=== PATIENT | male | born 1960 | race Caucasian/White ===

== ENCOUNTER 2022-07-07 12:50 | Emergency (ER) | payer SELFPAY ==
[~2022-07-07] VITALS: Ht 170.2 cm; Wt 65.8 kg
[2022-07-07 13:00] VITALS: BP 130/84
--- NOTE | 2022-07-07 13:03 | NUR ---
PT BIBA AND ASSISTED TO BED 8
--- NOTE | 2022-07-07 13:10 | NUR ---
61 M BIBA FROM [facility]. A&OX2. PT STATED HE "FELL WHEN CROSSING THE STREET". BRIGHT RED BLOOD ON NOSE WITH NO ACTIVE BLEEDING. PT HAS STITCHES ABOVE LEFT EYE, STATING HE "RECIEVED THEM ABOUT A MONTH AGO". HEALING WOUNDS PRESENT ON FACE AND RIGHT KNEE. NON-PRODUCTIVE COUGH PRESENT. RHONCHI HEARD UPON AUSCULTATION. NO ACUTE DISTRESS NOTED AT THIS TIME, VITALS STABLE, ON ROOM AIR. NKA PMH: DENIES NOTED BY JOSE THORNE RN AND REVIEWED BY JEFFERSON SIMPSON
--- NOTE | 2022-07-07 13:29 | NUR ---
PT'S WOUNDS CLEANED WITH WARM WATER AND BETADINE, CHAR CONVEYOR TENDER CELLAR AND ERMD NOTIFIED.
--- NOTE | 2022-07-07 13:40 | NUR ---
MD DEGROOT AT BEDSIDE FOR EVALUATION
--- NOTE | 2022-07-07 13:48 | NUR ---
PT TAKEN TO CT VIA GENIE
--- NOTE | 2022-07-07 14:00 | NUR ---
PT BROUGHT BACK FROM CT
[2022-07-07] MEDS ORDERED: ALBUTEROL SULFATE/IPRATROPIU 3 ML SOL IH ONE (15:10)
--- NOTE | 2022-07-07 15:15 | NUR ---
RT AT BEDSIDE
[2022-07-07 16:03] VITALS: BP 128/82
--- NOTE | 2022-07-07 16:33 | NUR ---
Patient discharged with v/s stable. Written and verbal after care instructions given and explained. Patient verbalized understanding. Ambulatory with steady gait. All questions addressed prior to discharge. Advised to follow up with PMD. REFUSED TO TAKE PAPERWORK.
--- NOTE | 2022-07-07 16:33 | NUR ---
Note sloan in EDM - 07/07/22 at 1637 by PHSEP Patient discharged with v/s stable. Written and verbal after care instructions FOR NASAL FRACTURE, UPPER RESPIRATORY INFECTION AND ALCOHOL ABUSE given and explained. Patient verbalized understanding. Ambulatory with steady gait. All questions addressed prior to discharge. Advised to follow up with PMD.
--- NOTE | 2022-07-08 17:12 | NUR ---
RADIOLOGY CALLED FOR CT DISCREPANCY, CALL TRANSFERRED TO DR CALLE. ATTEMPTED TO CONTACT PT, NO NUMBER ON FILE. DR CALLE AWARE
== END 2022-07-07 16:33 | disposition home or self-care (01) ==
LOC: MED 12:50
DX: S00.81XA Abrasion of other part of head, initial encounter (principal); Z20.822 Contact with and (suspected) exposure to COVID-19; F10.129 Alcohol abuse with intoxication, unspecified; F17.210 Nicotine dependence, cigarettes, uncomplicated; J44.9 Chronic obstructive pulmonary disease, unspecified; W19.XXXA Unspecified fall, initial encounter; Y93.89 Activity, other specified; Y92.89 Other specified places as the place of occurrence of the external cause; Y99.8 Other external cause status
CPT/HCPCS: 70450; 70486; 71045; 72125; 94640; 99285

== ENCOUNTER 2022-07-10 15:27 | Emergency (ER) | payer MEDICAID ==
[~2022-07-10] VITALS: Ht 167.6 cm; Wt 68.0 kg
[2022-07-10 16:48] VITALS: BP 96/65
--- NOTE | 2022-07-10 16:50 | NUR ---
PT TAKEN TO CHAIR C THEN WALKED OUT OF ER. PATIENT LEFT WITHOUT BEING SEEN BY DR. ALONZO. NO FURTHER CARE PROVIDED FOR PATIENT.
== END 2022-07-10 16:50 | disposition left against medical advice (07) ==
LOC: MED 15:27
DX: S00.11XD Contusion of right eyelid and periocular area, subsequent encounter (principal); S00.12XD Contusion of left eyelid and periocular area, subsequent encounter; Z53.21 Procedure and treatment not carried out due to patient leaving prior to being seen by health care provider; X58.XXXD Exposure to other specified factors, subsequent encounter

== ENCOUNTER 2022-07-10 19:13 | Emergency (ER) | payer MEDICAID ==
[~2022-07-10] VITALS: Ht 165.1 cm; Wt 63.5 kg
[2022-07-10 19:33] VITALS: BP 119/71
--- NOTE | 2022-07-10 19:36 | NUR ---
PT OFFLOADED TO LOBBY IN W/C WITH SEAT BELT
--- NOTE | 2022-07-10 21:16 | NUR ---
Dr. Gray examining patient.
--- NOTE | 2022-07-10 21:52 | NUR ---
Patient taken to CT scan via WC.
[2022-07-11 00:14] VITALS: BP 122/71
--- NOTE | 2022-07-11 00:14 | NUR ---
Patient discharged with v/s stable. Written and verbal after care instructions given and explained. Patient verbalized understanding. Ambulatory with steady gait. All questions addressed prior to discharge. Advised to follow up with PMD.
== END 2022-07-11 00:14 | disposition home or self-care (01) ==
LOC: MED 19:13
DX: F10.129 Alcohol abuse with intoxication, unspecified (principal); R51.9 Headache, unspecified; J44.9 Chronic obstructive pulmonary disease, unspecified; Y90.9 Presence of alcohol in blood, level not specified
CPT/HCPCS: 70450; 99284